=== PATIENT | male | born 1970 | race Caucasian/White ===

== ENCOUNTER 2019-04-30 19:39 | Emergency (ER) | payer OTHER ==
[~2019-04-30] VITALS: Ht 190.5 cm; Wt 149.7 kg
[2019-04-30 20:58] LABS: ABSOLUTE NEUTROPHILS 5.9 thou/uL (1.4-8.2); BASOPHILS 1.2 % (0.0-2.0); EOSINOPHILS 2.3 % (0.0-3.0); LYMPHOCYTES 18.4 % (24.0-44.0); MCH 26.4 pg (26.0-34.0); MCHC 32.6 g/dL (28.0-37.0); MCV 81.1 fL (80.0-100.0); PLATELET COUNT 238 thou/uL (150-400); POLYS 70.1 % (36.0-66.0); RBC 5.67 mil/uL (4.50-6.00); RDW 15.4 % (10.5-14.5); WBC 8.4 thou/uL (4.0-11.0)
[2019-04-30 21:05] LABS: CALCIUM 8.4 mg/dL (8.5-10.1); POTASSIUM 4.2 mmol/L (3.5-5.1)
[2019-04-30] MEDS ORDERED: LAMOTRIGINE200 MG PO (22:12)
[2019-04-30] MEDS ORDERED: LORAZEPAM 2MG TA2 M1 PO (22:13)
[2019-04-30] MEDS ORDERED: PERCOCET 10-321 EAC1 PO (22:13)
[2019-04-30] MEDS ORDERED: DIPHENHIST50 MG PO (22:14)
[2019-04-30] MEDS ORDERED: TAMSULOSIN HCL0.4 MG PO (22:14)
[2019-04-30 22:44] VITALS: BP 159/67
--- NOTE | 2019-05-01 08:30 | EKG ---
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
== END 2019-04-30 22:44 | disposition home or self-care (01) ==
LOC: ER 19:39
PROVIDERS: Emergency Medicine
DX: J40 Bronchitis, not specified as acute or chronic (principal); K50.90 Crohn's disease, unspecified, without complications; E66.01 Morbid (severe) obesity due to excess calories; Z68.41 Body mass index [BMI] 40.0-44.9, adult; Z90.49 Acquired absence of other specified parts of digestive tract; Z88.0 Allergy status to penicillin; Z88.8 Allergy status to other drugs, medicaments and biological substances

== ENCOUNTER 2019-05-01 12:07 | Inpatient (IN) | payer OTHER ==
[~2019-05-01] VITALS: Ht 182.9 cm; Wt 155.6 kg
[~2019-05-01 12:07] MED LIST: DIPHENHIST50 MG PO; LAMOTRIGINE200 MG PO; LORAZEPAM 2MG TA2 M1 PO; PERCOCET 10-321 EAC1 PO; TAMSULOSIN HCL0.4 MG PO
[2019-05-01 13:45] VITALS: BP 174/75
[2019-05-01 14:32] LABS: HEMATOCRIT 45.6 % (42.0-52.0); HEMOGLOBIN 14.8 gm/dL (14.0-18.0); MCH 26.5 pg (26.0-34.0); MCHC 32.6 g/dL (28.0-37.0); MCV 81.4 fL (80.0-100.0); RBC 5.6 mil/uL (4.50-6.00); RDW 15.6 % (10.5-14.5); WBC 10.6 thou/uL (4.0-11.0)
[2019-05-01 14:49] LABS: ALBUMIN 3.7 g/dL (3.4-5.0); CALCIUM 9.1 mg/dL (8.5-10.1); CREATININE 1.2 mg/dL (0.7-1.3); POTASSIUM 4.2 mmol/L (3.5-5.1); TOTAL BILIRUBIN 0.6 mg/dL (<0.1-1.0); TOTAL PROTEIN 6.4 g/dL (6.4-8.2)
[2019-05-01 20:08] VITALS: BP 153/84
--- NOTE | 2019-05-01 20:39 | NUR ---
PATIENT ARRIVED TO 4W ROOM 455 DURING LUNCH HOUR WITH DR LOYA AT BEDSIDE. DR. LOYA WROTE PARTIAL ORDERS THAT THIS NURSE ENTERED INTO [employer]. PATIENT ABLE TO AMBULATE INDEPENDENTLY IN ROOM. LABS DRAWN, XR COMPLETED, IV STARTED AND Q4 BREATHING TREATMENTS ORDERED. PATIENT IS REQUESTING AIR MATTRESS SO HE CAN SLEEP BETTER. PAT[facility]. PATIENT STATES AFTER RESPIRATORY TREATMENTS HE HAS GREEN SPUTUM.
[2019-05-02 00:22] VITALS: BP 111/65
[2019-05-02 05:45] VITALS: BP 127/77
--- NOTE | 2019-05-02 05:45 | NUR ---
ASSUMED CARE OF PT @1900. PT A&OX4. INDEPENDENT IN THE ROOM. PT REQUESTED A LOW AIR MATTRESS FOR PAIN IN BOTTOCKS FROM PREVIOUS SURGERIES. AIR LOSS ORDER WAS PLACED. PAIN WAS CONTROLLED WITH ORDERED PAIN MEDS. NO S/S OF OF DISTRESS. WILL CONT TO MONITOR
[2019-05-02 08:42] VITALS: BP 128/78
--- NOTE | 2019-05-02 09:04 | NUR ---
Nutrition: Assessed d/t BMI >40 (46.6 kg/m2); morbid obesity - class III high risk. Here w/ pneumonia. No weight hx to review per weight records in EMR over 4 yrs. On a regular diet, receiving IVFs. Notes appetite somewhat lower as of late, but definitely improving. Pt declined any nutrition education for healthier eating this date. Does not appear ready to implement any dietary changes for weight control at this time, as pt still wanting regular soda w/ meals. Encouraged emphasis on lean proteins and fruits/vegetables to help support immune system. Pt reports avoiding raw produce d/t Crohn's and needing soft, well cooked items - does not normally eat many vegetables. Encouraged him to make menu changes as needed. No interventions. Low nutrition risk.
--- NOTE | 2019-05-02 16:26 | NUR ---
PT ADMITTED RELATED TO CHRONS, SCLEREDERMA. CM REVIEWED CHART AND SPOKE WITH CARE TEAM. CM MET WITH PT AT BEDSIDE THIS DAY PT IS A&O X4. CM ROLE INTRODUCED. PT INDICATED HE LIVES IN A HOUSE WITH HIS SPOUSE WITH 5 STEPS TO ENTER AND NO STEPS INSIDE. 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 PT INDICATED HE HAD HH IN THAT PAST BUT COULDN'T RECALL PROVIDER. PT INDICATED HE HAS NO BREATHING EQUIPTMENT AT HOME. PT INDICATED HE PLANS TO RETURN HOME ONCE MEDICALLY STABLE. HE STATED THAT HIS SUFFERED A STROKE MONDAY AND THERE ARE PLANS TO HER TO GO TO [facility]. CM TO FOLLOW INDICATED WITH DC PLANNING.
[2019-05-02 18:22] VITALS: BP 146/88
--- NOTE | 2019-05-02 19:19 | NUR ---
Assumed patient care at 0715. Patient's vital signs have been stable throughout this shift. He has been compliant with all medications and treatments. Patient has consumed 100% of all meals and fluid intake has been adequate. POC followed. Will report to oncoming RN.
--- NOTE | 2019-05-03 05:26 | NUR ---
Assumed care of pt @1915. pt a&ox4. independent in the room. pt had a restful night. pt empties own ileostomy. pain was managed with ordered pain meds. air loss mattress was placed. IS at bedside and pt is encouraged to use it while awake. no s/s of distress. call pham within reach.
[2019-05-03] MEDS ORDERED: CEFDINIR300 MG PO (07:51)
[2019-05-03] MEDS ORDERED: RAYOS5 MG PO (07:52)
[2019-05-03 08:06] VITALS: BP 147/76
[2019-05-03 10:34] VITALS: BP 147/76
--- NOTE | 2019-05-03 15:06 | NUR ---
Received awake on bed. Due medications given as prescribed, able to swallow meds c/o difficulty. A+Ox4. On room air, with IS at bedside-advised to use during waking hours. With Ileostomy in place- pt self caring on his ileostomy; output measured and recorded. On regular diet; tolerating well- no nausea, no vomiting, no abdominal pain noted. With NS at 125cc/hr, infusing well at L hand. Pt up ad lisa, stable on his feet. Vital signs stable. Possible discharge today; Pt seen by Dr Rapp- discharge orders made, may go home after IV antibiotic infusion; no HH needs. Discharge instructions, follow up schedule, prescription given to patient. IV discontinued. Brought down via wheelchair, with his personal belongings.
== END 2019-05-03 14:21 | disposition home or self-care (01) | DRG 194 ==
LOC: 4W 12:07 → ENTRNSPT 05-03 13:39 → EDTRNSPTSTS 05-03 13:46 → 4W 05-03 14:21
PROVIDERS: ADMIT Family Medicine
DX: J18.9 Pneumonia, unspecified organism (principal); K50.90 Crohn's disease, unspecified, without complications; N17.9 Acute kidney failure, unspecified; F41.9 Anxiety disorder, unspecified; F31.9 Bipolar disorder, unspecified; J45.909 Unspecified asthma, uncomplicated; Z88.0 Allergy status to penicillin; Z88.8 Allergy status to other drugs, medicaments and biological substances; Z79.899 Other long term (current) drug therapy
CPT/HCPCS: 10047

== ENCOUNTER 2019-08-27 11:44 | Inpatient (IN) | payer OTHER ==
[~2019-08-27] VITALS: Ht 190.5 cm; Wt 152.0 kg
[~2019-08-27 11:44] MED LIST changes: +CEFDINIR300 MG PO; +RAYOS5 MG PO
[2019-08-27 11:47] VITALS: BP 186/78
[2019-08-27 12:44] LABS: ABSOLUTE NEUTROPHILS 3.2 thou/uL (1.4-8.2); BASOPHILS 1.5 % (0.0-2.0); EOSINOPHILS 11.2 % (0.0-3.0); HEMOGLOBIN 15.4 gm/dL (14.0-18.0); LYMPHOCYTES 17.5 % (24.0-44.0); MCH 26.9 pg (26.0-34.0); MCHC 32.2 g/dL (28.0-37.0); MCV 83.6 fL (80.0-100.0); MONOCYTES 11.5 % (1.0-8.0); PLATELET COUNT 244 thou/uL (150-400); POLYS 58.3 % (36.0-66.0); RBC 5.74 mil/uL (4.50-6.00); RDW 15.2 % (10.5-14.5); WBC 5.6 thou/uL (4.0-11.0)
[2019-08-27 12:46] LABS: CALCIUM 8.8 mg/dL (8.5-10.1); CREATININE 1.1 mg/dL (0.7-1.3)
[2019-08-27 12:48] LABS: POTASSIUM 3.9 mmol/L (3.5-5.1)
[2019-08-27 12:52] LABS: ALBUMIN 3.8 g/dL (3.4-5.0); TOTAL PROTEIN 6.6 g/dL (6.4-8.2)
[2019-08-27 12:53] LABS: TOTAL BILIRUBIN 9.1 mg/dL (<0.1-1.0)
[2019-08-27 17:40] VITALS: BP 149/70
[2019-08-27 18:39] VITALS: BP 149/70
[2019-08-27 18:45] VITALS: BP 153/58
[2019-08-28 03:10] VITALS: BP 127/70
[2019-08-28 08:10] VITALS: BP 146/64
[2019-08-28 08:10] LABS: HAV IgM AB (ANTI-HAV IgM) Negative (Negative); HEPATITIS B SURFACE AG Negative (Negative); HEPATITIS C VIRUS AB <0.1 (0.0-0.9)
[2019-08-28 09:14] LABS: HEMATOCRIT 47.9 % (42.0-52.0); HEMOGLOBIN 15.6 gm/dL (14.0-18.0); MCH 27.4 pg (26.0-34.0); MCHC 32.5 g/dL (28.0-37.0); MCV 84.3 fL (80.0-100.0); RBC 5.68 mil/uL (4.50-6.00); RDW 15.6 % (10.5-14.5)
[2019-08-28 09:44] LABS: ALBUMIN 3.6 g/dL (3.4-5.0); CALCIUM 8.7 mg/dL (8.5-10.1); POTASSIUM 4.1 mmol/L (3.5-5.1); TOTAL PROTEIN 6.2 g/dL (6.4-8.2)
[2019-08-28 16:18] VITALS: BP 138/64
[2019-08-28 20:05] VITALS: BP 142/63
[2019-08-29 04:07] VITALS: BP 137/60
[2019-08-29 10:06] VITALS: BP 146/74
[2019-08-29 15:40] VITALS: BP 116/73
[2019-08-29 19:00] VITALS: BP 129/74
[2019-08-30] VITALS (7 sets, daily range): BP systolic 141–168; BP diastolic 62–76
[2019-08-31 01:00] VITALS: BP 134/31
[2019-08-31 06:46] LABS: HEMATOCRIT 43.1 % (42.0-52.0); HEMOGLOBIN 13.7 gm/dL (14.0-18.0); MCH 26.8 pg (26.0-34.0); MCHC 31.9 g/dL (28.0-37.0); MCV 84.2 fL (80.0-100.0); RBC 5.12 mil/uL (4.50-6.00); RDW 15.4 % (10.5-14.5); WBC 6.1 thou/uL (4.0-11.0)
[2019-08-31 07:19] LABS: ALBUMIN 2.9 g/dL (3.4-5.0); DIRECT BILIRUBIN 5.2 mg/dL (<0.1-0.2); TOTAL BILIRUBIN 6.5 mg/dL (<0.1-1.0); TOTAL PROTEIN 5.1 g/dL (6.4-8.2)
[2019-08-31 09:10] VITALS: BP 118/61
[2019-08-31 18:44] VITALS: BP 135/61
[2019-08-31 19:50] VITALS: BP 133/64
[2019-09-01 04:25] VITALS: BP 167/67
[2019-09-01 07:41] VITALS: BP 149/57
[2019-09-01 10:12] LABS: MCH 26.8 pg (26.0-34.0); MCHC 31.8 g/dL (28.0-37.0); MCV 84.4 fL (80.0-100.0); RBC 5.57 mil/uL (4.50-6.00); WBC 4.5 thou/uL (4.0-11.0)
[2019-09-01 10:32] LABS: ALBUMIN 3.4 g/dL (3.4-5.0); CALCIUM 8.5 mg/dL (8.5-10.1); POTASSIUM 3.7 mmol/L (3.5-5.1); TOTAL BILIRUBIN 6.1 mg/dL (<0.1-1.0); TOTAL PROTEIN 6.2 g/dL (6.4-8.2)
[2019-09-01 16:57] VITALS: BP 150/60
[2019-09-01 20:17] VITALS: BP 154/72
[2019-09-02] VITALS (8 sets, daily range): BP systolic 138–175; BP diastolic 60–88
[2019-09-02 05:25] LABS: HEMOGLOBIN 14.4 gm/dL (14.0-18.0); MCH 27.1 pg (26.0-34.0); MCHC 31.9 g/dL (28.0-37.0); RBC 5.29 mil/uL (4.50-6.00); RDW 16.2 % (10.5-14.5); WBC 4.9 thou/uL (4.0-11.0)
[2019-09-02 06:03] LABS: ALBUMIN 3.1 g/dL (3.4-5.0); CALCIUM 8.2 mg/dL (8.5-10.1); CREATININE 0.9 mg/dL (0.7-1.3); POTASSIUM 3.9 mmol/L (3.5-5.1); TOTAL BILIRUBIN 4.5 mg/dL (<0.1-1.0)
[2019-09-02 06:15] LABS: TOTAL PROTEIN 5.7 g/dL (6.4-8.2)
[2019-09-03 00:49] VITALS: BP 129/59
[2019-09-03 04:00] VITALS: BP 123/59
[2019-09-03 06:36] LABS: HEMATOCRIT 46.4 % (42.0-52.0); HEMOGLOBIN 14.8 gm/dL (14.0-18.0); MCHC 31.8 g/dL (28.0-37.0); MCV 84.8 fL (80.0-100.0); RBC 5.48 mil/uL (4.50-6.00); RDW 16.3 % (10.5-14.5); WBC 9.6 thou/uL (4.0-11.0)
[2019-09-03 06:43] LABS: ALBUMIN 3.2 g/dL (3.4-5.0); CALCIUM 8.5 mg/dL (8.5-10.1); POTASSIUM 4.4 mmol/L (3.5-5.1); TOTAL BILIRUBIN 4.1 mg/dL (<0.1-1.0); TOTAL PROTEIN 5.9 g/dL (6.4-8.2)
[2019-09-03 07:37] VITALS: BP 132/59
[2019-09-03 13:03] VITALS: BP 132/59
--- NOTE | 2019-09-04 09:27 | P ---
[facility] [place] [address] PROCEDURE REPORT Name: BALDEV ROSENTHAL Room #: 434-P [facility] IN M.R.#: [id number] Admission: 08/27/19 Attend Phys: Migel Rapp MD Discharge: 09/03/19 Date of : 68 Report #: [id number] THIS REPORT FOR: cc: Migel Rapp MD, Neal A. MD McElhinney, Christian C. MD ~ CC: Ras Rapp MD DATE OF SERVICE: 08/30/2019 PROCEDURE PERFORMED: ERCP with sphincterotomy and stone removal. HISTORY OF PRESENT ILLNESS: The patient is a 49-year-old male, who was admitted on 08/27/2019 with jaundice, bilirubin at that time was 9.1. AST, ALT and alkaline phosphatase were also elevated. Abdominal ultrasound is showing hepatomegaly with severe diffuse hepatic steatosis, splenomegaly, cholelithiasis, mild biliary ductal dilation. No history of alcohol. The patient underwent MRCP on 08/27/2019. This showed choledocholithiasis, large gallstones within the gallbladder, common bile duct measuring 4 mm, is nondistended; however filling defect was noted, at least 2 stones. The pancreatic duct is grossly unremarkable. There was a possible node or mass near the pancreatic head and the duodenum. Because of this, he then underwent a CT scan of the abdomen and pelvis for further evaluation. No evidence of pancreatic mass was noted on CT. Findings on MRI is likely secondary to extensive fatty replacement. Plan is for ERCP today. DESCRIPTION OF PROCEDURE: The risks and benefits of the procedure were explained to the patient, the risks including but not limited to bleeding, perforation and the risk of sedation as well as the potential for posterior superior pancreatitis. He understood these risks and gave informed consent. The procedure was performed under general anesthesia in the operating room. Clindamycin was given prior to the procedure. Unable to give indomethacin suppository as the patient does not have an anus. He has a permanent colostomy. Next, using a standard Olympus side-viewing ERCP scope, the scope was placed in the patient's mouth and advanced under direct vision through the esophagus, stomach and into the second portion in the duodenum. A duodenal diverticulum with the major papilla noted within the diverticulum was seen. This may explain the findings on recent MRCP and CT as well. No masses were seen. Next, using a Mike-Cook 0.025 dome tipped sphincterotome catheter, the common bile duct was cannulated without difficulty and a cholangiogram was obtained. There appeared to be 2 filling defects in the distal common bile duct. The common bile duct appears to be 6 mm in size. The intrahepatic ducts were normal. Cystic duct and the gallbladder filled, 2 very large stones were noted within the gallbladder. At this point, a guidewire was advanced into the intrahepatic [facility] [address] [place] [address] PROCEDURE REPORT Name: BALDEV ROSENTHAL Room #: 434-P [facility] IN M.R.#: [id number] Admission: 08/27/19 Attend Phys: Migel Rapp MD Discharge: 09/03/19 Date of : 68 Report #: [id number] ducts and a large sphincterotomy was performed without difficulty. The sphincterotome was then removed leaving the guidewire in place. Next, a balloon catheter was advanced over the guidewire and both stones were removed with balloon sweeps without difficulty. I then performed several further sweeps. No further filling defects were noted on cholangiogram. At this point, the scope was then withdrawn and the procedure terminated. The patient tolerated the procedure well. IMPRESSION: 1. Choledocholithiasis x 2, status post ERCP with sphincterotomy and stone removal today. 2. Two large gallstones within the gallbladder. The cystic duct and gallbladder did fill with dye. 3. Normal intrahepatic ducts. RECOMMENDATIONS: 1. Observe the patient post-procedure. 2. We will start a regular diet. 3. Continue to monitor liver function tests and labs closely. 4. Plan is for laparoscopic cholecystectomy on Monday with Dr. Cary. Thank you for allowing me to participate in his care. <ELECTRONICALLY SIGNED> By: Gavino Catherine MD 09/04/19 0927 1639 [id number] Gavino Catherine MD /nt
--- NOTE | 2019-09-04 17:07 | PATH ---
[facility] [address] [place] [address] PATHOLOGY RPT PROCEDURE Name: GUZMAN ROSENTHAL Room #: 434-P [facility] IN M.R.#: [id number] Admission: 08/27/19 Date of : 68 Discharge: 09/03/19 Report #: [id number] Path Case #: [id number] [facility] Accession Number: [id number] . 01 Material submitted: . gallbladder - GALLBLADDER . 01 Clinical history: . Choledocholithiasis . 02 Diagnosis: Gallbladder, cholecystectomy: - Moderate chronic cholecystitis. - Cholelithiasis. (IUV:service learning coordinator; 09/04/2019) [facility]BR 09/04/2019 1351 Local . 02 Electronically signed: . Coleen Alas MD, Pathologist NPI- [id number] . 01 Gross description: . The specimen is received in formalin, labeled "Guzman Rosenthal, gallbladder". Received is a previously opened gallbladder measuring 5.5 x 3.2 x 1.8 cm in greatest dimensions displaying a pink-will, shaggy serosal surface. Opening the specimen reveals a velvety, light will mucosa with a gallbladder wall thickness of up to 0.3 cm. Calculi are present displaying a light brown and smooth to granular appearance, and no masses or lesions are noted grossly. Division Order Analyst sections, to include the proximal margin, are submitted in cassette A1. (CAA; 09/03/2019) QA/[facility] 09/03/2019 1126 Local . 02 Pathologist provided ICD-10: K80.10 . 02 CPT . 961017 Specimen Comment: A courtesy copy of this report has been sent to [phone], [phone] Specimen Comment: [id number] Specimen Comment: Report sent to and Performed at: [address], [place] [id number] MD Elias Rojas MD Phone: [phone] Performed at: [address] [place] [address] PATHOLOGY RPT PROCEDURE Name: GUZMAN ROSENTHAL Room #: 434-P [facility] IN M.R.#: [id number] Admission: 08/27/19 Date of : 68 Discharge: 09/03/19 Report #: [id number] Path Case #: [id number] [facility] [address] [id number] MD Coleen Alas MD Phone: [phone]
[2019-09-06] MEDS ORDERED: DIPHENHIST50 MG PO (13:46)
== END 2019-09-03 13:30 | disposition short-term general hospital (02) | DRG 409 ==
LOC: ER 11:44 → EROBS 15:31 → 4S 15:31
PROVIDERS: Emergency Medicine Emergency Medical Services; Internal Medicine Gastroenterology; Nurse Practitioner; Specialist; Surgery; ADMIT Family Medicine
PROC: 0FC48ZZ Extirpation of Matter from Gallbladder, Via Natural or Artificial Opening Endoscopic (ICD-10-PCS; principal; 2019-08-30)
PROC: BF131ZZ Fluoroscopy of Gallbladder and Bile Ducts using Low Osmolar Contrast (ICD-10-PCS; principal; 2019-08-30)
PROC: BF141ZZ Fluoroscopy of Gallbladder, Bile Ducts and Pancreatic Ducts using Low Osmolar Contrast (ICD-10-PCS; 2019-09-02)
PROC: 0FT44ZZ Resection of Gallbladder, Percutaneous Endoscopic Approach (ICD-10-PCS; 2019-09-02)
DX: K80.67 Calculus of gallbladder and bile duct with acute and chronic cholecystitis with obstruction (principal); K50.90 Crohn's disease, unspecified, without complications; Z68.41 Body mass index [BMI] 40.0-44.9, adult; K21.9 Gastro-esophageal reflux disease without esophagitis; R16.2 Hepatomegaly with splenomegaly, not elsewhere classified; F41.9 Anxiety disorder, unspecified; F31.9 Bipolar disorder, unspecified; M34.9 Systemic sclerosis, unspecified; K76.0 Fatty (change of) liver, not elsewhere classified; E66.01 Morbid (severe) obesity due to excess calories; L73.2 Hidradenitis suppurativa; K43.9 Ventral hernia without obstruction or gangrene; K86.9 Disease of pancreas, unspecified; K75.9 Inflammatory liver disease, unspecified; N40.1 Benign prostatic hyperplasia with lower urinary tract symptoms; R33.8 Other retention of urine; Z79.899 Other long term (current) drug therapy; Z88.8 Allergy status to other drugs, medicaments and biological substances; Z88.0 Allergy status to penicillin; Z93.3 Colostomy status; Z80.0 Family history of malignant neoplasm of digestive organs
CPT/HCPCS: 10195; 50010; 50101; 50249; 50411; 50555; 50558; 51297; 51489; 52265; 52266; 53307; 53310; 53312; 54022; 54118; 55245; 56462; 56525; 56526; 56527; 62110; 62900; 70005

== ENCOUNTER → 2019-09-06 | Outpatient (CLI) | payer OTHER ==
[2019-09-06 13:05] VITALS: BP 142/76
[2019-09-06 13:30] LABS: HEMATOCRIT 48.4 % (42.0-52.0); HEMOGLOBIN 15.6 gm/dL (14.0-18.0); MCH 26.7 pg (26.0-34.0); MCHC 32.1 g/dL (28.0-37.0); MCV 83.1 fL (80.0-100.0); RBC 5.82 mil/uL (4.50-6.00); RDW 15.4 % (10.5-14.5); WBC 8.5 thou/uL (4.0-11.0)
[2019-09-06 13:58] LABS: CALCIUM 8.3 mg/dL (8.5-10.1); CREATININE 0.9 mg/dL (0.7-1.3); POTASSIUM 3.6 mmol/L (3.5-5.1)
[2019-09-06 14:04] LABS: ALBUMIN 3.2 g/dL (3.4-5.0); TOTAL BILIRUBIN 4.5 mg/dL (<0.1-1.0); TOTAL PROTEIN 6.3 g/dL (6.4-8.2)
--- NOTE | 2019-09-06 16:47 | NUR ---
IN FOR IV FLUIDS FOR DEHYDRATION/JAUNDICE, S/P CHOLECYSTECTOMY ON MONDAY. PATIENT STATED HAVING MILD NAUSEA, SLOW OUTPUT INTO ILEOSTOMY. IV STARTED IN LAC AND INFUSED 1 LITER NS OVER 1 HOUR. TOLERATED WELL. CALLED LAB RESULTS TO ROB CHONG. SHE STATED HAVE PATIENT COME SEE ME ON MONDAY. REMOVED IV AND DISMISSED IN STABLE CONDITION.
== END ==
LOC: OPONC 12:54
PROVIDERS: Nurse Practitioner
DX: E86.0 Dehydration (principal); R17 Unspecified jaundice; R11.0 Nausea; Z93.2 Ileostomy status; Z90.49 Acquired absence of other specified parts of digestive tract
CPT/HCPCS: 95000

== ENCOUNTER 2019-10-10 06:18 | Emergency (ER) | payer OTHER ==
[~2019-10-10] VITALS: Ht 190.5 cm; Wt 152.0 kg
[2019-10-10] MEDS ORDERED: PROZAC40 MG PO (06:29)
[2019-10-10 08:00] LABS: ABSOLUTE NEUTROPHILS 4.3 thou/uL (1.4-8.2); BASOPHILS 1.2 % (0.0-2.0); EOSINOPHILS 4.9 % (0.0-3.0); HEMATOCRIT 48.5 % (42.0-52.0); LYMPHOCYTES 24.4 % (24.0-44.0); MCH 27.1 pg (26.0-34.0); MCHC 32.9 g/dL (28.0-37.0); MCV 82.4 fL (80.0-100.0); MONOCYTES 11.1 % (1.0-8.0); PLATELET COUNT 234 thou/uL (150-400); POLYS 58.4 % (36.0-66.0); RBC 5.88 mil/uL (4.50-6.00); RDW 14.7 % (10.5-14.5); WBC 7.3 thou/uL (4.0-11.0)
[2019-10-10 08:08] LABS: ANION GAP 9 mmol/L (7-16); BUN 9 mg/dL (7-18); CALCIUM 8.8 mg/dL (8.5-10.1); CHLORIDE 103 mmol/L (98-107); CO2 26 mmol/L (21-32); GLUCOSE 107 mg/dL (74-106); POTASSIUM 3.9 mmol/L (3.5-5.1); SODIUM 138 mmol/L (136-145)
[2019-10-10 08:14] LABS: ALBUMIN 3.6 g/dL (3.4-5.0); DIRECT BILIRUBIN 0.4 mg/dL (<0.1-0.2); SGOT 27 U/L (15-37); SGPT 41 U/L (30-65); TOTAL PROTEIN 5.9 g/dL (6.4-8.2); TROPONIN-I <0.06 ng/mL (<0.06)
[2019-10-10 09:05] VITALS: BP 145/71
--- NOTE | 2019-10-10 09:25 | EKG ---
[facility] [place] [address] ELECTROCARDIOGRAM REPORT Name: STEPHANIERAYMONDBALDEV Owusu [facility] [id number] Admission: 10/10/19 Attend Phys: Discharge: 10/10/19 Date of : 68 Report #: [id number] THIS REPORT FOR: cc: Migel Rapp MD, Neal A. 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 : 1970 Requested By: Marivel Marmolejo Order Number: [id number] MD: Dragan Newby Measurements Intervals [place] Rate: 67 P: 8 MO: 186 QRS: -71 QRSD: 156 T: 9 QT: 444 QTc: 469 Interpretive Statements Sinus rhythm Ventricular premature complex RBBB and LAFB Compared to ECG 04/30/2019 20:02:02 No significant change was found Electronically Signed On 10-10-2019 9:24:32 CDT by Dragan Newby [email or web address] <ELECTRONICALLY SIGNED> By: Dragan Newby MD, [facility] 10/10/19 0924 [id number] [id number] Dragan Newby MD, [facility] /EPI
== END 2019-10-10 09:05 | disposition home or self-care (01) ==
LOC: ER 06:18
PROVIDERS: Emergency Medicine
DX: J06.9 Acute upper respiratory infection, unspecified (principal); K50.90 Crohn's disease, unspecified, without complications; F31.9 Bipolar disorder, unspecified; F41.9 Anxiety disorder, unspecified; Z90.49 Acquired absence of other specified parts of digestive tract; Z88.0 Allergy status to penicillin; Z88.6 Allergy status to analgesic agent; Z88.8 Allergy status to other drugs, medicaments and biological substances

== ENCOUNTER → 2019-12-16 | Outpatient (CLI) | payer OTHER ==
[~2019-12-16] MED LIST changes: +PROZAC40 MG PO
== END ==
LOC: ULTRA 14:05
DX: R22.32 Localized swelling, mass and lump, left upper limb (principal)

== ENCOUNTER → 2020-01-31 | Outpatient (CLI) | payer OTHER | LOC: LAB 09:47 | PROVIDERS: ATTEND Nurse Practitioner | DX: R05 Cough (principal); R68.83 Chills (without fever); R09.89 Other specified symptoms and signs involving the circulatory and respiratory systems; Z20.828 Contact with and (suspected) exposure to other viral communicable diseases ==

== ENCOUNTER → 2020-10-07 | Outpatient (CLI) | payer OTHER ==
[~2020-10-07] MED LIST changes: +BENADRYL ALLERG25 MG PO; +DESYREL150 MG PO; +IBUPROFEN200 M1 PO
[2020-10-07 12:00] VITALS: BP 130/55
[2020-10-07 13:08] VITALS: BP 130/55
[2020-10-07 13:10] VITALS: BP 130/55
--- NOTE | 2020-10-07 13:10 | NUR ---
HERE FOR 1ST OF 5 VENOFER INFUSIONS. DYSPNEIC ON EXERTION. NO OTHER COMPLAINTS OFFERED. TEACHING DONE. TOLERATED FIRST INFUSION WITHOUT INCIDENT, NO S/S REACTION, VSS. WILL RETURN AGAIN FRI FOR NEXT INFUSION AND SET UP THE REMAINING WHEN HE RETURNS. DISMISSED IN STABLE CONDITION.
== END ==
LOC: OPONC 11:28
PROVIDERS: ATTEND Nurse Practitioner
DX: D50.9 Iron deficiency anemia, unspecified (principal); D63.8 Anemia in other chronic diseases classified elsewhere
CPT/HCPCS: 95000

== ENCOUNTER → 2020-10-09 | Outpatient (CLI) | payer OTHER ==
[2020-10-09 10:25] VITALS: BP 140/68
[2020-10-09 11:00] VITALS: BP 136/62
--- NOTE | 2020-10-09 11:17 | NUR ---
IN FOR #2 OF 5 VENOFER INFUSIONS FOR IRON DEFICIENCY ANEMIA. STATED FEELING WELL. TOLERATED INFUSION WITHOUT INCIDENT. POST BP GOOD. TO RETURN ON MONDAY FOR 3RD INFUSION. DISMISSED IN STABLE CONDITION.
== END ==
LOC: OPONC 08:36
PROVIDERS: ATTEND Nurse Practitioner
DX: D50.9 Iron deficiency anemia, unspecified (principal); D63.8 Anemia in other chronic diseases classified elsewhere
CPT/HCPCS: 95000

== ENCOUNTER → 2020-10-12 | Outpatient (CLI) | payer OTHER ==
[2020-10-12 09:42] VITALS: BP 133/68
[2020-10-12 10:15] VITALS: BP 140/58
--- NOTE | 2020-10-12 10:25 | NUR ---
HERE FOR HIS 3RD OF 5 VENOFER INFUSIONS. REPORTS TOLERATING EACH WELL WITH NO UNTOWARD SIDE EFFECTS. VSS POST. NO CONCERNS NOTED. DISMISSED IN STABLE CONDITION. SCHEDULED TO RETURN AGAIN ON MON.
== END ==
LOC: OPONC 11:59
PROVIDERS: ATTEND Nurse Practitioner
DX: D50.9 Iron deficiency anemia, unspecified (principal); D63.8 Anemia in other chronic diseases classified elsewhere
CPT/HCPCS: 95000

== ENCOUNTER → 2020-10-14 | Outpatient (CLI) | payer OTHER ==
[2020-10-14 10:37] VITALS: BP 118/62
[2020-10-14 11:23] VITALS: BP 145/62
--- NOTE | 2020-10-14 11:30 | NUR ---
HERE FOR 4TH OF 5 VENOFER INFUSIONS. REPORTS CONTINUING TO TOLERATE EACH WELL AND WITHOUT ANY NOTED SIDE EFFECTS. TOLERATED TODAY'S INFUSION WITHOUT INCIDENT, VSS POST. DISMISSED IN STABLE CONDITION. SCHEDULED TO RETURN ON MONDAY FOR HIS LAST INFUSION.
== END ==
LOC: OPONC 10:11
PROVIDERS: ATTEND Nurse Practitioner
DX: D50.9 Iron deficiency anemia, unspecified (principal); D63.8 Anemia in other chronic diseases classified elsewhere
CPT/HCPCS: 95000

== ENCOUNTER → 2020-10-16 | Outpatient (CLI) | payer OTHER ==
[2020-10-16 10:40] VITALS: BP 127/61
[2020-10-16 11:36] VITALS: BP 131/65
--- NOTE | 2020-10-16 12:12 | NUR ---
IN FOR FINAL VENOFER INFUSION FOR IRON DEFICIENCY ANEMIA. PATIENT STATED HE THINKS HIS BREATHING IS BETTER AND HAS HAD NO SIDE EFFECTS FROM LAST DOSE. IV PLACED IN RIGHT ARM WITHOUT DIFFICULTY. TOLERATED INFUSION WITHOUT INCIDENT. POST BP GOOD. REMOVED IV AND DISMISSED IN STABLE CONDITION.
== END ==
LOC: OPONC 09:29
PROVIDERS: ATTEND Nurse Practitioner
DX: D50.9 Iron deficiency anemia, unspecified (principal); D63.8 Anemia in other chronic diseases classified elsewhere
CPT/HCPCS: 95000

== ENCOUNTER → 2020-11-19 | Outpatient (CLI) | payer OTHER | LOC: RAD 10:40 | PROVIDERS: ATTEND Nurse Practitioner | DX: R06.02 Shortness of breath (principal); M25.552 Pain in left hip; I51.7 Cardiomegaly ==

== ENCOUNTER → 2021-03-23 | Outpatient (CLI) | payer OTHER | LOC: HYPER 07:39 | PROVIDERS: ATTEND Specialist | DX: L73.2 Hidradenitis suppurativa (principal); L98.492 Non-pressure chronic ulcer of skin of other sites with fat layer exposed; L02.219 Cutaneous abscess of trunk, unspecified; L02.223 Furuncle of chest wall; L03.319 Cellulitis of trunk, unspecified; L24.89 Irritant contact dermatitis due to other agents; E66.01 Morbid (severe) obesity due to excess calories; B36.9 Superficial mycosis, unspecified; K50.90 Crohn's disease, unspecified, without complications; F17.200 Nicotine dependence, unspecified, uncomplicated; F41.9 Anxiety disorder, unspecified; Z93.3 Colostomy status; Z68.41 Body mass index [BMI] 40.0-44.9, adult ==

== ENCOUNTER → 2021-03-30 | Outpatient (CLI) | payer OTHER | LOC: HYPER 07:32 | PROVIDERS: ATTEND Specialist | DX: L73.2 Hidradenitis suppurativa (principal); L98.492 Non-pressure chronic ulcer of skin of other sites with fat layer exposed; L02.219 Cutaneous abscess of trunk, unspecified; L02.223 Furuncle of chest wall; L03.319 Cellulitis of trunk, unspecified; L24.89 Irritant contact dermatitis due to other agents; R21 Rash and other nonspecific skin eruption; E66.01 Morbid (severe) obesity due to excess calories; B36.9 Superficial mycosis, unspecified; K50.90 Crohn's disease, unspecified, without complications; F17.200 Nicotine dependence, unspecified, uncomplicated; F41.9 Anxiety disorder, unspecified; Z93.3 Colostomy status; Z68.41 Body mass index [BMI] 40.0-44.9, adult ==

== ENCOUNTER → 2021-04-13 | Outpatient (CLI) | payer OTHER | LOC: HYPER 07:49 | PROVIDERS: ATTEND Specialist | DX: L73.2 Hidradenitis suppurativa (principal); L98.492 Non-pressure chronic ulcer of skin of other sites with fat layer exposed; L02.211 Cutaneous abscess of abdominal wall; L02.223 Furuncle of chest wall; L02.219 Cutaneous abscess of trunk, unspecified; L03.319 Cellulitis of trunk, unspecified; B36.9 Superficial mycosis, unspecified; L24.89 Irritant contact dermatitis due to other agents; R21 Rash and other nonspecific skin eruption; K50.90 Crohn's disease, unspecified, without complications; E66.9 Obesity, unspecified; F41.9 Anxiety disorder, unspecified; F31.9 Bipolar disorder, unspecified; Z68.41 Body mass index [BMI] 40.0-44.9, adult; Z79.899 Other long term (current) drug therapy; Z93.3 Colostomy status ==